=== PATIENT | female | born 1960 ===

== ENCOUNTER 2017-12-13 16:48 | Emergency (ER) | payer MEDICAID ==
[~2017-12-13] VITALS: Ht 162.6 cm; Wt 92.0 kg
[2017-12-13 16:57] VITALS: BP 148/107
[2017-12-13] MEDS ORDERED: LISINOPRIL 20 MG TABLET ONE (17:23)
[2017-12-13] MEDS ORDERED: LISINOPRIL 20 MG TABLET PO ONE (17:30)
== END 2017-12-13 17:46 | disposition home or self-care (01) ==
LOC: ED 17:40
DX: I10 Essential (primary) hypertension (principal); Z76.0 Encounter for issue of repeat prescription; Z88.0 Allergy status to penicillin; Z88.5 Allergy status to narcotic agent; Z88.2 Allergy status to sulfonamides; Z88.8 Allergy status to other drugs, medicaments and biological substances
CPT/HCPCS: 99283